=== PATIENT | female | born 1975 | race Caucasian/White ===

== ENCOUNTER 2017-04-12 13:49 | Emergency (ER) | payer MEDICAID, OTHER, SELFPAY ==
[2017-04-12] MEDS ORDERED: Ketorolac Tromethamine 30 MG/ML VIAL ONE (14:20)
--- NOTE | 2017-04-12 15:11 | RAD ---
TWO VIEWS OF THE LEFT HIP: INDICATION: A 41-year-old female with left hip pain. FINDINGS: There is partial visualization of an intramedullary neal within the proximal left femur. The left hi p appears within normal limits. No acute osseous abnormality is evident. IMPRESSION: No acute osseous abnormality. POS: [facility]
--- NOTE | 2017-04-12 15:15 | RAD ---
FOUR VIEWS OF THE LEFT FEMUR: INDICATION: Left femoral pain. COMPARISON: None. FINDINGS: There is a retrograde intramedullary neal with proximal and distal interlock screws transfixing a sup racondylar femur fracture. There is incomplete healing of the supracondylar femur fracture. There is a lateral CALEB plate and screw construct also fixating the distal femur. The instrumentation pro jects in the expected position. 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 No acute os seous abnormality is evident. IMPRESSION: Incompletely healed instrumented supracondylar femur fracture. POS: [facility]
== END 2017-04-12 15:41 | disposition home or self-care (01) ==
LOC: ERS 13:49
DX: S72.452G Displaced supracondylar fracture without intracondylar extension of lower end of left femur, subsequent encounter for closed fracture with delayed healing (principal); M19.90 Unspecified osteoarthritis, unspecified site; F32.9 Major depressive disorder, single episode, unspecified; Z98.890 Other specified postprocedural states
CPT/HCPCS: 96372; J1885